=== PATIENT | female | born 2000 | race Caucasian/White ===

== ENCOUNTER 2023-07-07 13:06 | Emergency (ER) | payer BC, SELFPAY ==
--- NOTE | ~2023-07-07 | XR_ITS ---
EXAMINATION: XR FEMUR, LEFT CLINICAL INFORMATION: Cellulitis posterior leg COMPARISON: None available. TECHNIQUE: 4 views views of the left femur were obtained. FINDINGS: Anatomic alignment of the hip joint. Joint space is maintained. No visible acute fracture or malalignment of the femur. The visualized pelvic bones intact. No acute findings seen in the visualized portion of the knee. No knee joint effusion. No abnormal soft tissue calcification. No radiopaque foreign body or air is seen in the soft tissues. XR/XR femur LT 2V IMPRESSION: No radiographic evidence of acute fracture or malalignment.
--- NOTE | 2023-07-07 13:10 | ECG_ITS ---
Test Reason : RAPID HEARTBEAT Blood Pressure : / mmHG Vent. Rate : 077 BPM Atrial Rate : 077 BPM P-R Int : 096 ms QRS Dur : 088 ms QT Int : 390 ms P-R-T Axes : 058 084 066 degrees QTc Int : 441 ms Sinus rhythm with sinus arrhythmia with short MA Otherwise normal ECG No previous ECGs available Referred By: Generic ED Physician Electronically Signed By:Reed Franks
[2023-07-07 13:30] VITALS: BP 111/66; PULSE 74; RESP 16; TEMP 36.7; O2SAT 100; BMI 18.8
--- NOTE | 2023-07-07 13:31 | ED_ITS ---
HPI - General Adult General Chief complaint: Skin/Abscess/Foreign Body Stated complaint: rapid heart beat dizzy hot flashes Time Seen by Provider: 07/07/23 14:04 Source: patient and family (dad) Mode of arrival: ambulatory Limitations: no limitations History of Present Illness HPI narrative: 23 year old female with no significant pmhx presents to the ED today for evaluation of redness and pain to left thigh after receiving a tattoo on (2 days ago). Patient states she received a tattoo along her posterior left thigh at a tattoo salon that she has been to before. Yesterday the area surrounding the tattoo became increasingly more red. She endorses pain with the area being tender to touch. The area is warm. Denies drainage or discharge from a tattoo. She has not taken any OTC medications at home for pain. Her father at bedside advised her to come to the ED for evaluation as the site looked infected. Additionally endorses racing heart rate and states this is likely secondary to anxiety surrounding this situation. Denies headache, fever, chills, sob, chest pain, n/v. Related Data Previous Rx's ?Medication ?Instructions ?Recorded cephalexin 500 mg capsule 500 mg PO QID 7 days #28 caps 07/07/23 doxycycline monohydrate 100 mg 100 mg PO BID 7 days #14 tabs 07/07/23 tablet morphine 15 mg tablet,extended 15 mg PO Q12H PRN pain (scale 07/07/23 release score 7-10) #6 tabs Allergies Allergy/AdvReac Type Severity Reaction Status Date / Time No Known Allergies Allergy Verified 07/07/23 13:37 Review of Systems 2 Review of Systems: Constitutional: No fever, chills, fatigue, night sweats, weight changes ENT/Mouth: No ear pain, hearing loss, nasal congestion, sinus pain, rhinorrhea, sore throat Eyes: No eye pain, swelling, redness, vision changes, discharge Cardio: No chest pain, palpitations, WEEKS, orthopnea, peripheral edema Pulm: No SOB, cough, sputum, wheezing, dyspnea, hemoptysis GI: No nausea, vomiting, hematemesis, abdominal pain, diarrhea, constipation, hematochezia, melena : No irregular bleeding, dysuria, frequency, urgency, hesitancy, hematuria, flank pain, urinary flow changes, urinary incontinence or retention MSK: No back pain, neck pain, joint pain, myalgias Skin: No lesions, rashes, +redness around tattoo site Neuro: No weakness, numbness, paresthesias, LOC, dizziness, headache Psych: No anxiety/panic, depression, SI/HI, AH/VH All other systems reviewed and are negative. [facility] Past Medical History Attestation statement: The following information was validated with the patient. Source: old records reviewed and nursing notes reviewed Social History Social History Advance Directives: No Advance Directives Information Provided: No Do you have a plan to hurt others: No Plan Physical Exam ED Vital Signs: Vital Signs - 24 hr 07/07/23 13:30 07/07/23 15:08 07/07/23 17:12 Temperature 98.1 F 98.2 F 98.4 F Pulse Rate 74 76 73 Respiratory Rate 16 18 18 Blood Pressure 111/66 118/64 120/66 Pulse Oximetry 100 99 99 Oxygen Delivery Method Room Air Room Air Room Air BMI result Body Mass Index 18.8 Vital signs stable, afebrile. Const General: cooperative, healthy appearing, comfortable and no acute distress Orientation/consciousness: patient oriented x3 Limitations: no limitations [facility] Head: Yes normal to inspection, Yes No palpable skull fracture present, Yes normocephalic and Yes atraumatic Eyes General: appearance normal, both eyes and all related structures Conjunctivae: conjunctivae normal Sclerae: sclerae normal Pupils: Equal, round and reactive pupils present Neck Neck: Yes normal visual inspection, Yes full ROM, Yes no lymphadenopathy and Yes no meningeal signs Chest Chest palpation & inspection: normal inspection of the chest and normal palpation of entire chest wall Resp Effort & Inspection: normal respiratory effort and able to speak in complete sentences Auscultation: clear to auscultation bilaterally Cardio Rate: regular rate Rhythm: regular rhythm Skin Other: + see photo below Neuro General: patient oriented x3, gait normal and no meningeal signs Cranial nerves: Yes Equal, round and reactive pupils present Extrem Other: + see photo below + area of erythema surrounding tattoo to posterior distal left thigh. warm to the touch. tender to palpation. no opening, drainage or discharge. no streaking. no active bleeding. no palpable fluctuance or creptitus. full ROM intact to left knee and hip. ambulating with steady gait. 2+dp/pt and popliteal pulses. Course Course Course Narrative: This is a rapid medical exam completed by Kayleen RUSH: Additional HPI, ROS, PE not included below will be deferred to primary provider. Tattoo to left posterior thigh on with concerns for infection. Tattoo area swollen and red, warm to the touch with purulent discharge. Concerns for hot and cold flashes. Denies fever. Reports racing heartrate with mild chest pain. States she has a history of anxiety and has had chest pain in the past when anxious. Tattoo done in [place] at [facility] Tattoo Reevaluation(s) Reevaluation #1: 1711-- CBC with slight leukocytosis to 11. No left shift. No anemia. H&H stable. Chemistry without acute electrolyte abnormality requiring intervention. Normal renal and liver function. Normal magnesium level. Troponin undetectable > no concern for ACS. EKG showing sinus rhythm with sinus arrhythmia at a rate of 77 beats per minute, QT 390, QTC 441, no acute ischemic changes or ST elevations. OH interval 96. X-ray of left femur does not demonstrate effusion or soft tissue abnormality. No free air. Suspicion for cellulitis secondary to infected tattoo. Vital signs are stable. Patient is well-appearing. No concern for sepsis although blood cultures were obtained as a precaution. Keflex and doxy given. Will send patient home with course of Keflex and doxy along with morphine for breakthrough pain. Patient and her father verbalized understanding and are in agreement with this. The area of erythema was marked with skin pen to ensure regression. Advised to return if redness spreads outside lines. Patient has remained stable throughout ED visit today. Discussed worrisome signs and symptoms and when to return to the ED. All questions answered at this time. Patient is agreeable with disposition and stable for discharge. Medications Administered Discontinued Medications Generic Name Dose Route Start Last Admin Trade Name Freq PRN Reason Stop Dose Admin Acetaminophen 975 mg 07/07/23 14:53 07/07/23 14:56 Acetaminophen 325 Mg Tablet PO 07/07/23 14:54 975 mg ONCE ONE Administration Medical Decision Making Medical Decision Making MDM Narrative: 23 year old female with no significant pmhx presents to the ED today for evaluation of redness and pain to left thigh after receiving a tattoo on (2 days ago). Vital signs stable. afebrile. no signs of sepsis. rrr. lungs cta b/l. area of erythema surrounding tattoo to posterior distal left thigh. warm to the touch. tender to palpation. no opening, drainage or discharge. no streaking. no active bleeding. no palpable fluctuance or creptitus. full ROM intact to left knee and hip. ambulating with steady gait. 2+dp/pt and popliteal pulses. Differential diagnosis includes cellulitis. Low suspicion for abscess. Unlikely sepsis, gangrene, MRSA, nv compromise, compartment syndrome, osteomyelitis, lymphangitis. Plan for basic labs, xr, pain control, and re-evaluation. Differential Diagnosis Differential Diagnoses: The differential diagnosis associated with the presentation includes as above. Admission/Observation Not indicated Lab Data MDM Lab Attestation statement: I reviewed the patient's lab results. As above 07/07/23 13:44 07/07/23 13:44 Labs: Lab Results 07/07/23 Range/Units 13:44 WBC 11.0 H (4.8-10.8) X10*3/uL RBC 4.40 (4.20-5.50) X10*6/uL Hgb 13.5 (12.0-16.0) g/dl Hct 39.4 (37.0-47.0) % MCV 89.5 (80.0-98.0) fL MCH 30.7 (27.0-33.0) pg MCHC 34.3 (31.0-35.0) g/dl RDW 12.0 (11.0-16.0) % Plt Count 235 (160-400) X10*3/uL MPV 10.2 (9.4-12.3) fL Immature Gran % (Auto) 0.3 (0.0-0.4) % Neut % (Auto) 62.8 (45-73) % Lymph % (Auto) 23.2 (20-40) % [place] % (Auto) 7.9 (2-11) % Eos % (Auto) 5.3 H (0-4) % Baso % (Auto) 0.5 (0-2) % Lymph # (Auto) 2.5 (1.2-4.9) X10*3/uL [place] # (Auto) 0.9 (0.1-1.2) X10*3/uL Eos # (Auto) 0.6 H (0.0-0.4) X10*3/uL Baso # (Auto) 0.1 (0.0-0.2) X10*3/uL Abs Immat Gran (auto) 0.03 (0.00-0.03) X10*3/uL Absolute Neuts (auto) 6.9 (2.0-8.3) x10*3/uL Absolute Nucleated RBC 0.000 (0.0-0.012) X10*3/uL Nucleated RBC % (auto) 0.0 (0.0-0.2) /100WBC Sodium 138 (135-145) mmol/L Potassium 3.6 (3.3-5.1) mmol/L Chloride 104 (96-108) mmol/L Carbon Dioxide 23 (22-29) mmol/L Anion Gap 15 (12-20) BUN 6 L (9-16) mg/dL Creatinine 0.74 (0.5-1.4) mg/dL Estim Creat Clear Calc 100.0 Estimated GFR > 60 Random Glucose 92 (60-115) mg/dL Calcium 9.1 (8.4-10.2) mg/dL Magnesium 1.9 (1.6-2.6) mg/dL Total Bilirubin 0.4 (0.0-1.0) mg/dL Direct Bilirubin 0.2 (0.0-0.5) mg/dL AST 28 (5-31) U/L ALT 45 H (0-31) U/L Alkaline Phosphatase 69 (39-117) U/L Troponin I High Sens < 2.7 (<3.5-17.0) ng/L Total Protein 7.0 (6.5-8.0) g/dL Albumin 3.9 (3.5-5.0) g/dL Independent Interpretation I performed an independent interpretation of an: EKG and Plain X-Ray Interpretation: EKG showing normal sinus rhythm with sinus arrhythmia at a rate of 77 beats per minute, QT 390, QTC 441, no acute ischemic changes or ST elevations. OH interval 96. X-ray of left femur does not demonstrate joint effusion, signs of osteomyelitis, or soft tissue air/abnormalities, agree with radiologist's interpretation. Radiology Impression Discussion of test interpretation with radiology: I have reviewed the radiologist's reading. Radiologist Impression: EXAMINATION: XR FEMUR, LEFT CLINICAL INFORMATION: Cellulitis posterior leg COMPARISON: None available. TECHNIQUE: 4 views views of the left femur were obtained. FINDINGS: Anatomic alignment of the hip joint. Joint space is maintained. No visible acute fracture or malalignment of the femur. The visualized pelvic bones intact. No acute findings seen in the visualized portion of the knee. No knee joint effusion. No abnormal soft tissue calcification. No radiopaque foreign body or air is seen in the soft tissues. XR/XR femur LT 2V IMPRESSION: No radiographic evidence of acute fracture or malalignment. Independent Historian Clinical information obtained from an independent historian. History obtained from or confirmed by: Parent (dad) Prescription Management I considered prescription management with: Pain Medication (Morphine) and Antibiotic (Keflex, doxycycline) Social Determinants Patient?s care significantly limited by Social Determinants of Health including: Other Social Determinant of Health Critical Care Time Critical Care Time Critical Care Time: Yes Total Critical Care Time: 35 Attestation: Critical care time in the amount of 35 minutes has been provided to the patient in terms of direct patient care, frequent reevaluation, review and interpretation of medical data and results, and management of potentially life- threatening conditions. This is all outside of any medical procedures. Discharge Plan Discharge Clinical Impression: Cellulitis Patient Disposition: Home, Self-Care Instructions: Cellulitis (ED) Additional Instructions: Your lab work today is reassuring. Your xrays You have cellulitis (infection of the skin) surrounding your new tattoo. Keflex is an antibiotic that has been sent to your pharmacy. Take this as directed over the next 7 days to treat infection. Doxycycline is an antibiotic that has been sent to your pharmacy. Take this as directed over the next 7 days to treat infection. On doxycycline, do not take pills immediately before going to bed and swallow pills with plenty of water. Avoid direct sunlight, iron, antacids, and Pepto Bismol. Call your provider if you develop new ringing in your ears, new problems hearing, dizziness, difficulty swallowing, rash, abdominal discomfort, nausea, or diarrhea. You received one dose of both of these medications in the emergency department today. You may take Tylenol and ibuprofen at home for pain and discomfort. 6 tablets of morphine ER have been sent to your pharmacy. You may take this for break through pain. Although morphine has less addictive properties then other controlled substances, take this with caution. Return with new or worsening symptoms such as fever, chills, discharge from the tattoo, worsening redness, a red line upper down her leg. Follow-up with your primary care doctor. If you do not have a PCP, a referral has been provided to you. You may call them to establish care. The case of an emergency call 911. Prescriptions: New cephalexin 500 mg capsule 500 mg PO QID 7 Days Qty: 28 0RF doxycycline monohydrate 100 mg tablet 100 mg PO BID 7 Days Qty: 14 0RF morphine 15 mg tablet extended release 15 mg PO Q12H PRN (Reason: pain (scale score 7-10)) Qty: 6 0RF Rx Instructions: Partial Fill upon patient request. Referrals: [facility] Family Medicine [Provider Group] [facility] Primary CareKathy [Provider Group] [facility] Primary CareAnjelica [Provider Group] Yesica Moseley MD [Primary Care Provider] - Stand Alone Forms: Work/School Release Print Language: Danish
[2023-07-07 13:49] LABS: MANUAL DIFF FLAG NO
[2023-07-07 13:50] LABS: Basophils Absolute Auto 0.1 X10*3/uL (0.0-0.2); Basophils Percent Auto 0.5 % (0-2); Eosinophils Absolute Auto 0.6 X10*3/uL (0.0-0.4); Eosinophils Percent Auto 5.3 % (0-4); Hematocrit 39.4 % (37.0-47.0); Hemoglobin 13.5 g/dl (12.0-16.0); Imm Gran Abs Auto 0.03 X10*3/uL (0.00-0.03); Imm Gran Pct Auto 0.3 % (0.0-0.4); Lymphocytes Absolute Auto 2.5 X10*3/uL (1.2-4.9); Lymphocytes Percent Auto 23.2 % (20-40); Mean Corpuscular HGB Conc 34.3 g/dl (31.0-35.0); Mean Corpuscular Hemoglobin 30.7 pg (27.0-33.0); Mean Corpuscular Volume 89.5 fL (80.0-98.0); Mean Platelet Volume 10.2 fL (9.4-12.3); Monocytes Absolute Auto 0.9 X10*3/uL (0.1-1.2); Monocytes Percent Auto 7.9 % (2-11); Neutrophils Absolute Auto 6.9 x10*3/uL (2.0-8.3); Neutrophils Percent Auto 62.8 % (45-73); Platelet Count 235 X10*3/uL (160-400)
[2023-07-07 14:14] LABS: Anion Gap 15 (12-20); Blood Urea Nitrogen 6 mg/dL (9-16); Calcium 9.1 mg/dL (8.4-10.2); Carbon Dioxide 23 mmol/L (22-29); Chloride 104 mmol/L (96-108); Estimated Glomerular Filt Rate > 60; Glucose Random 92 mg/dL (60-115); Potassium 3.6 mmol/L (3.3-5.1); Sodium 138 mmol/L (135-145)
[2023-07-07 14:48] LABS: Alanine Aminotransferase 45 U/L (0-31); Albumin Level 3.9 g/dL (3.5-5.0); Alkaline Phosphatase 69 U/L (39-117); Aspartate Amino Transferase 28 U/L (5-31); Bilirubin Direct 0.2 mg/dL (0.0-0.5); Bilirubin Total 0.4 mg/dL (0.0-1.0); Magnesium 1.9 mg/dL (1.6-2.6)
[2023-07-07 14:51] LABS: Troponin-I High Sensitivity < 2.7 ng/L (<3.5-17.0)
[2023-07-07] MEDS: Acetaminophen 325 MG TABLET 975 MG PO (14:56)
[2023-07-07 15:08] VITALS: BP 118/64; PULSE 76; RESP 18; TEMP 36.8; O2SAT 99
[2023-07-07 17:12] VITALS: BP 120/66; PULSE 73; RESP 18; TEMP 36.9; O2SAT 99
[2023-07-07] MEDS: Doxycycline Monohydrate 100 MG CAPSULE PO (17:42)
[2023-07-07] MEDS: cephALEXin 500 MG CAPSULE PO (17:42)
[2023-07-07 17:53] VITALS: BP 120/66; PULSE 73; RESP 18; TEMP 36.9; O2SAT 99
== END 2023-07-07 17:54 | disposition home or self-care (01) ==
PROVIDERS: Nurse Practitioner Family; Physician Assistant Medical; Emergency Provider Student in an Organized Health Care Education/Training Program; PCP Internal Medicine
DX: L03.116 Cellulitis of left lower limb (principal); M79.652 Pain in left thigh; R00.0 Tachycardia, unspecified
CPT/HCPCS: 36415; 73552; 80048; 80076; 83735; 84484; 85025; 87040; 93005; 99283; 99284

== ENCOUNTER → 2023-07-07 13:10 | Outpatient (BNV) | payer BC, SELFPAY | PROVIDERS: Emergency Provider Student in an Organized Health Care Education/Training Program; PCP Internal Medicine; Visit Provider Internal Medicine Cardiovascular Disease | DX: I49.9 Cardiac arrhythmia, unspecified (principal) | CPT/HCPCS: 93010 ==

== ENCOUNTER 2023-11-20 13:51 | Outpatient (AMB) | payer BC, SELFPAY ==
--- NOTE | 2023-11-20 13:38 | A.OFFPC_ITS ---
Vital Signs 11/20/23 13:57 Height 5 ft 6.22 in Weight 119 lb BMI 19.1 BP 96/58 L Blood Pressure Location Lt brachial Position Sitting Respiration 16 Pulse 82 Pulse Source Pulse Oximeter Temp 98.3 F Temp Source Oral Pulse Oximetry (%) 100 Oxygen Delivery Method Room Air Intake Visit Reasons: vero from [facility] Intake Note: New patient visit Allergies No Known Allergies Allergy (Verified 11/20/23 13:56) Tobacco use date assessed: 11/20/23 Dental Screening Dental Screen Date: 11/20/23 Did you have a dental visit in the last 12 months?: Yes Did you have a dental problem in the last 6 months where you did not have access to dental care?: No Was dental information given to patient?: Patient has dentist HPI HPI Comments History of Present Illness Details This is a 23-year-old female with a past medical history of leukocytosis, anxiety presenting for follow-up Anxiety: She was previously on Lexapro however tapered off and feels stable off medications She has seen therapist in the past and did start going again in the spring. She does telehealth with her provider twice weekly. Allergies: On xyzal. 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 ROS CONSTITUTIONAL: Denies weight loss, fever and chills. HEENT: Denies changes in vision and hearing. RESPIRATORY: Denies SOB and cough. CV: Denies palpitations and CP GI: Denies abdominal pain, nausea, vomiting and diarrhea. : Denies dysuria and urinary frequency. MSK: Denies new myalgia and joint pain. SKIN: Denies rash and pruritus. NEUROLOGICAL: Denies headache PSYCHIATRIC: Denies recent changes in mood. PHYSICAL EXAM: GENERAL: Alert and oriented x 3. NAD EYES: EOMI. Anicteric. HENT: Moist mucous membranes. No scleral icterus. No cervical lymphadenopathy. LUNGS: Clear to auscultation bilaterally. CARDIOVASCULAR: Regular rate and rhythm. No murmur. No JVD. ABDOMEN: Soft, non-tender +bs EXTREMITIES: No edema. Non-tender. SKIN: No rashes or lesions. Warm. NEUROLOGIC: No focal neurological deficits. CN II-XII grossly intact PSYCHIATRIC: Cooperative. 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 How often do you have a drink containing alcohol?: 2-4 times a month 2. How many drinks containing alcohol do you have on a typical day when you are drinking?: 3 or 4 3. How often do you have six or more drinks on one occasion?: Never Total Score: 3 Physical exam (Primary Care) Vital Signs: Last Vital Signs Temp 98.3 F 11/20/23 13:57 Pulse 82 11/20/23 13:57 Resp 16 11/20/23 13:57 BP 96/58 L 11/20/23 13:57 Pulse Ox 100 11/20/23 13:57 Oxygen Delivery Method Room Air 11/20/23 13:57 BMI result Body Mass Index 19.1 Tobacco/Smoking Status: Tobacco use Status Tobacco use date assessed 11/20/23 11/20/23 13:41 Patient Tobacco Use Status Former Tobacco user 11/20/23 14:02 e-Cigarette/Vaping Use Former Use 11/20/23 13:41 Thrive Assessment: Date of Thrive Assessment Date Thrive assessed 11/01/23 11/20/23 13:41 Assessment and Plan Assessment & Plan (1) Leukocytosis: Code(s): D72.829 - Elevated white blood cell count, unspecified Qualifiers: Leukocytosis type: unspecified Qualified Code(s): D72.829 - Elevated white blood cell count, unspecified Plan: stable, monitor (2) Anxiety: Code(s): F41.9 - Anxiety disorder, unspecified Plan: stable off medications (3) Allergic rhinitis: Code(s): J30.9 - Allergic rhinitis, unspecified Qualifiers: Allergic rhinitis seasonality: seasonal Allergic rhinitis trigger: unspecified Qualified Code(s): J30.2 - Other seasonal allergic rhinitis Plan: Fairly stable on xyzal Coding Level of Care Code Est Pt Level 4 (54623) Diagnoses Leukocytosis, unspecified type D72.829 Leukocytosis type: unspecified Anxiety F41.9 Seasonal allergic rhinitis, unspecified trigger J30.2 Allergic rhinitis seasonality: seasonal Allergic rhinitis trigger: unspecified
[2023-11-20 13:57] VITALS: BP 96/58; PULSE 82; RESP 16; TEMP 36.8; O2SAT 100; BMI 19.1
== END 2023-11-20 14:16 | disposition home or self-care (01) ==
PROVIDERS: PCP Internal Medicine; Visit Provider Internal Medicine
DX: D72.829 Elevated white blood cell count, unspecified (principal); F41.9 Anxiety disorder, unspecified; J30.2 Other seasonal allergic rhinitis

== ENCOUNTER → 2023-11-20 13:51 | Outpatient (BNVA) | payer BC, SELFPAY | PROVIDERS: PCP Internal Medicine; Visit Provider Internal Medicine ==